=== PATIENT | male | born 1990 | race Caucasian/White ===

== ENCOUNTER 2017-05-14 08:25 | Day surgery (SDC) | payer OTHER ==
[~2017-05-14] VITALS: Ht 177.8 cm; Wt 73.3 kg
[2017-05-14 09:02] VITALS: BP 124/75; PULSE 85; TEMP 97.8
[2017-05-14] MEDS ORDERED: MOTRIN 800800 MG/TAB PO (09:17)
[2017-05-14] MEDS ORDERED: NORCO 325 MG-51 TAB PO (09:17)
[2017-05-14] MEDS ORDERED: CIPRO 500MG TA500 MG PO (09:18)
[2017-05-14] MEDS ORDERED: UROXATRAL10 M1 PO (09:19)
[2017-05-14 11:45] VITALS: BP 126/89; PULSE 78; TEMP 97.6
[2017-05-14 12:00] VITALS: BP 127/86; PULSE 74
[2017-05-14 12:17] VITALS: TEMP 97.7
[2017-05-14 12:30] VITALS: BP 120/69; PULSE 89
[2017-05-14 13:00] VITALS: BP 108/72; PULSE 73
== END 2017-05-14 13:36 | disposition home or self-care (01) ==
LOC: EDBD 08:25 → SDCO 08:25
DX: N20.1 Calculus of ureter (principal); R10.9 Unspecified abdominal pain; F41.9 Anxiety disorder, unspecified; R35.0 Frequency of micturition; R63.1 Polydipsia
CPT/HCPCS: C1769; C2617; J0690; J1885; J2405; J2704; J3010; J7120; Q9967